=== PATIENT | male | born 1975 | race Caucasian/White ===

== ENCOUNTER 2017-01-24 03:09 | Emergency (ER) | payer MEDICAID ==
[~2017-01-24] VITALS: Ht 167.6 cm; Wt 93.0 kg
[~2017-01-24 03:09] MED LIST: CIPR500T4 PO; IBUP-1542 PO; IBUP800T25 PO; LANS15CA PO; METR500T14 PO
[2017-01-24 03:14] VITALS: Ht 167.6 cm; Wt 93.0 kg
--- NOTE | 2017-01-24 04:05 | ERD ---
ER Documentation Chief Complaint Date/Time DATE: 01/24/17 TIME: 04:03 Chief Complaint cough x 2 weeks HPI 31-year-old male presents here in emergency department for complaints of cough for 2 weeks. Patient has been having dry cough, does not appear to be coughing phlegm or blood. Patient does not have any shortness breath or wheezing. Patient has been having cough but does not have any chest pain or palpitations. Patient denies any irregular heartbeat. Patient also has history of gastritis. Patient does not have any sick contacts. ROS All systems reviewed and are negative except as per history of present illness. Medications Home Meds Active Scripts Albuterol Sulfate* (Proair HFA*) 8.5 Gm Hfa.aer.ad, 2 PUFF INH Q4H Y for WHEEZING AND SOB, #1 INHALER Prov:MILTON GOLDSMITH NP 01/24/17 Cetirizine Hcl* (Zyrtec*) 10 Mg Capsule, 10 MG PO DAILY, #30 TAB.CHEW Prov:MILTON GOLDSMITH NP 01/24/17 Guaifenesin-Codeine Phosphate* (Guaifenesin* AC Cough Syrup) 473 Ml Liquid, 5 ML PO Q4H Y for COUGH, #60 ML Prov:MILTON GOLDSMITH NP 01/24/17 Azithromycin* (Zithromax*) 250 Mg Tablet, 250 MG PO .ZPACK DIRECTED, #6 TAB TAKE 500 MG (2 TABS) THE FIRST DAY THEN 250 MG (1 TAB) DAYS 2-5 Prov:MILTON GOLDSMITH NP 01/24/17 Ibuprofen* (Motrin*) 600 Mg Tab, 600 MG PO Q6, #30 TAB Prov:CATRACHITO LAU PA-C 11/24/15 Ibuprofen* (Motrin*) 800 Mg Tab, 800 MG PO Q6H Y for PAIN AND OR ELEVATED TEMP, #30 TAB Prov:MARCOS JENNINGS MD 07/16/15 Metronidazole (Flagyl) 500 Mg Tab, 500 MG PO Q8 for 7 Days, TAB Prov:MELONIE GAUTAM 06/22/15 Ciprofloxacin Hcl* (Ciprofloxacin Hcl*) 500 Mg Tablet, 500 MG PO BID for 7 Days , TAB Prov:MELONIE GAUTAM. 06/22/15 Reported Medications Lansoprazole* (Prevacid* 24HR) 15 Mg Capsule.dr, 15 MG PO DAILY, CAP 06/22/15 Allergies Allergies: Coded Allergies: No Known Drug Allergy (Verified Allergy, Unknown, 01/24/17) PMhx/Soc History of Surgery: No Anesthesia Reaction: No Hx Neurological Disorder: No Hx Respiratory Disorders: No Hx Cardiac Disorders: No Hx Psychiatric Problems: No Hx Miscellaneous Medical Probl: Yes (heart burn) Hx Alcohol Use: Yes (socially) Hx Substance Use: No Hx Tobacco Use: No Smoking Status: Unknown if ever smoked FmHx Family History: No coronary disease, No diabetes, No other Physical Exam Vitals Vital Signs Date Time Temp Pulse Resp B/P Pulse Ox O2 Delivery O2 Flow Rate FiO2 01/24/17 03:14 97.0 88 20 143/80 98 Physical Exam GENERAL: The patient is well developed and appropriate for usual state of health, in no apparent distress. CHEST: Clear to auscultation bilaterally. There are no rales, wheezes or rhonchi. HEART: Regular rate and rhythm. No murmurs, clicks, rubs or gallops. No S3 or S4. ABDOMEN: Soft, nontender and nondistended. Good bowel sounds. No rebound or guarding. No gross peritonitis. No gross organomegaly or masses. No Lr sign or McBurney point tenderness. BACK: No midline or flank tenderness. EXTREMITIES: Equal pulses bilaterally. There is no peripheral clubbing, cyanosis or edema. No focal swelling or erythema. Full range of motion. Grossly neurovascularly intact. NEURO: Alert and oriented. Cranial nerves 2-12 intact. Motor strength in all 4 extremities with 5/5 strength. Sensation grossly intact. Normal speech and gait. SKIN: There is no apparent rash or petechia. The skin is warm and dry. HEMATOLOGIC AND LYMPHATIC: There is no evidence of excessive bruising or lymphedema. No gross cervical, axillary, or inguinal lymphadenopathy. Results 24 hrs Current Medications Medications (Trade) Dose Ordered Sig/Giulia Route PRN Reason Start Time Stop Time Status Last Admin Dose Admin Miscellaneous Medication (Gi Cocktail (2)) 40 ml ONCE ONCE PO 01/24/17 04:30 01/24/17 04:31 DC 01/24/17 04:29 GI cocktail was given here in emergency department to help with possible acid reflux causing the cough, verbalized feeling much better afterwards. PROCEDURE: CHEST - 1 VIEW CLINICAL INDICATION: 41-year-old male with cough for 2 weeks. TECHNIQUE: A single frontal AP semi-erect view of the chest was performed portably. The images were reviewed on a PACS workstation. COMPARISON: None. FINDINGS: The cardiomediastinal silhouette has a normal appearance. There is a shallow inspiration. There is eventration of the right hemidiaphragm. There is mild left basilar subsegmental atelectasis. There is no evidence for congestive heart failure. There is no evidence for pneumothorax. The osseous structures are intact. IMPRESSION: Shallow inspiration with mild left basilar subsegmental atelectasis. A superimposed infiltrate cannot be excluded. Clinical correlation is necessary. .Live Beltre MD, MD Date Time Electronically viewed and signed by .Live Beltre MD, on 01/24/2017 04:24 .M/ CC: MILTON GOLDSMITH [employer] COORDINATOR Procedures/MDM Medical Decision Making: Patient symptoms are most likely consistent with acute bronchitis, which viral in origin, can be also from atypical infection considering patient has been having cough for 2 weeks, cannot exclude infiltrate in the chest x-ray treatment with antibiotics will be started at this time. There is low suspicion for Pneumonia at this time since patients lungs sounds are clear, patient O2 saturation is normal and patient doesnt show any respiratory distress. Patients chest xray doesnt show infiltrates or any other cardiopulmonary emergencies at this time. There is low suspicion for other cardiopulmonary emergencies at this time such as CHF, Pulmonary Embolism, Pneumothorax, Aortic Aneurysm or any other cardiopulmonary emergencies at this time. There is low suspicion for sepsis. Patient appears well and is hemodynamically stable. She does not have any fever. Disposition: Home. Condition: Stable Prescriptions: Azithromycin, guaifenesin with codeine Zyrtec albuterol Instructions: Patient is advised to take medications as prescribed. Patient is advised to rest. Patient advised to increase fluid intake, do humidifier at home and if possible, do salt water gargles. Patient is advised that if symptoms are worse, shortness of breath, uncontrolled fever, stridor, vomiting, worst signs and symptoms to return to emergency department immediately. Otherwise, patient is advised to follow up with primary doctor in 5-7 days. Departure Diagnosis: Primary Impression: Acute bronchitis Bronchitis organism: unspecified organism Qualified Code: J20.9 - Acute bronchitis, unspecified organism Condition: Stable Patient Instructions: Bronchitis, Antiobiotic Treatment (Adult) Additional Instructions: Patient is advised to take medications as prescribed. Patient is advised to rest. Patient advised to increase fluid intake, do humidifier at home and if possible, do salt water gargles. Patient is advised that if symptoms are worse, shortness of breath, uncontrolled fever, stridor, vomiting, worst signs and symptoms to return to emergency department immediately. Otherwise, patient is advised to follow up with primary doctor in 5-7 days. MILTON GOLDSMITH NP Jan 24, 2017 04:05
--- NOTE | 2017-01-24 04:24 | RADRPT ---
PROCEDURE: CHEST - 1 VIEW CLINICAL INDICATION: 41-year-old male with cough for 2 weeks. TECHNIQUE: A single frontal AP semi-erect view of the chest was performed portably. The images we re reviewed on a PACS workstation. COMPARISON: None. FINDINGS: The cardiomediastinal silhouette has a normal appearance. There is a shallow inspiration. There is eventration of the right hemidiaphragm. There is mild left basilar subsegmental atelectasis. Ther e is no evidence for congestive heart failure. There is no evidence for pneumothorax. The osseous st ructures are intact. IMPRESSION: Shallow inspiration with mild left basilar subsegmental atelectasis. A superimposed infiltrate canno t be excluded. Clinical correlation is necessary. .Live Beltre MD, Date Time Electronically viewed and signed by .Live Beltre MD, MD on 01/24/2017 04:24 .M/
[2017-01-24] MEDS ORDERED: LIDOCAINE/MYLANTA 40 ML BTL PO ONE (04:30)
[2017-01-24] MEDS ORDERED: GUAI473L22 PO (04:52)
[2017-01-24] MEDS ORDERED: CETI10CA PO (04:52)
[2017-01-24] MEDS ORDERED: ALBU8.5H3 INH (04:52)
[2017-01-24] MEDS ORDERED: AZIT250T94 PO (04:52)
[2017-01-24 05:33] VITALS: BP 121/73; PULSE 71; RESP 18; TEMP 98.9
== END 2017-01-24 05:53 | disposition home or self-care (01) ==
LOC: FTE 03:09
DX: J20.9 Acute bronchitis, unspecified (principal)
CPT/HCPCS: 71010; Z7502; Z7610

== ENCOUNTER 2018-02-22 01:15 | Emergency (ER) | END 2018-02-22 07:05 | disposition home or self-care (01) ==

== ENCOUNTER 2018-03-06 02:50 | Emergency (ER) | END 2018-03-06 06:07 | disposition home or self-care (01) ==

== ENCOUNTER 2018-03-13 11:34 | Emergency (ER) | END 2018-03-13 17:02 | disposition home or self-care (01) ==

== ENCOUNTER 2018-06-04 02:35 | Emergency (ER) | END 2018-06-04 05:48 | disposition home or self-care (01) ==